=== PATIENT | female | born 2000 | race Two or more races ===

== ENCOUNTER 2022-08-17 08:27 | Inpatient (IN) | payer OTHER ==
[~2022-08-17] VITALS: Ht 152.4 cm; Wt 73.9 kg
== END 2022-08-19 15:18 | disposition home or self-care (01) | DRG 807 ==
LOC: OB/GYN 08:27 → LDR 08:27 → OB/GYN 22:36
PROVIDERS: ADMIT Obstetrics & Gynecology; ATTEND Obstetrics & Gynecology
PROC: 10E0XZZ Delivery of Products of Conception, External Approach (ICD-10-PCS; principal; 2022-08-17)
PROC: 4A1HXCZ Monitoring of Products of Conception, Cardiac Rate, External Approach (ICD-10-PCS; 2022-08-17)
DX: O36.5930 Maternal care for other known or suspected poor fetal growth, third trimester, not applicable or unspecified (principal); Z37.0 Single live birth; Z3A.38 38 weeks gestation of pregnancy; Z20.822 Contact with and (suspected) exposure to COVID-19